=== PATIENT | female | born 1990 | race Caucasian/White ===

== ENCOUNTER 2020-05-07 01:13 | Emergency (ER) | payer SELFPAY ==
[2020-05-07] MEDS ORDERED: Bacitracin Oint 1 GM U/D Packet TOP ONE (02:25)
[2020-05-07] MEDS ORDERED: Diphtheria,Pertussis(Acell),Tetanus Vaccine 0.5 ML SDV IM ONE (02:25)
[2020-05-07] MEDS ORDERED: Ketorolac 60 MG/2 ML SDV IM ONE (02:25)
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
== END 2020-05-07 03:34 | disposition home or self-care (01) ==
LOC: JP.ED 01:13
DX: S16.1XXA Strain of muscle, fascia and tendon at neck level, initial encounter (principal); S40.021A Contusion of right upper arm, initial encounter; R07.81 Pleurodynia; F17.210 Nicotine dependence, cigarettes, uncomplicated; Z23 Encounter for immunization; Z88.1 Allergy status to other antibiotic agents; Z88.5 Allergy status to narcotic agent; V89.2XXA Person injured in unspecified motor-vehicle accident, traffic, initial encounter
CPT/HCPCS: 71045; 72050; 73060; 90471; 90715; 96372; 99284; J1885